=== PATIENT | female | born 1940 | race Caucasian/White ===

== ENCOUNTER 2017-06-30 17:45 | Emergency (ER) | payer MEDICARE ==
--- NOTE | 2017-06-30 21:12 | EDM.PDOC ---
ED HPI GENERAL MEDICAL PROBLEM - General Chief Complaint: General Stated Complaint: DIZZY,HEADACHE,NUMBNESS,NAUSEA Time Seen by Provider: 06/30/17 19:06 Source of Information: Reports: Patient, Family (), Old Records, RN Notes Reviewed History Limitations: Reports: No Limitations - History of Present Illness INITIAL COMMENTS - FREE TEXT/NARRATIVE: Brought in by her daughter and son-in-law Chief complaint Off-balance nausea and face numbness History of present illness 77-year-old female who is generally healthy apart from treatment for depression , on no other medications. Went over to her daughter's place at 3 PM today, started feeling that she was going to get "dizzy". So she went home where she became much worse. It was very difficult to get her to explain what she meant by dizzy, it seems that means off balance when walking but she also had nausea feeling unwell feeling that she was out of sorts. It was associated with a slight headache. Not a spinning sensation not like she was going to faint. She laid down for a while and then her grandson called because she was about to have dinner. She canceled dinner because of how she felt and then he called the daughter who went and checked on her brought her here. No nausea or vomiting or diarrhea no urinary symptoms. She feels tired but has had no cough or cold symptoms recently. She feels that there is some decreased vision in both of her eyes and she has some burning and numbness in her left cheek. No problems moving her arms or legs. She didn't need any assistance walking home or walking in. She has had some loose stools today but this is usual for her because of diverticulosis, she states she usually has at least 1 and often 2 stools per day. She's had cataract eye surgery but no surgery on the eye muscles. Her headache is quite mild and she wouldn't take any medication for it. 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 Strong family history of TIAs in her father denies Pain Score (Numeric/FACES): 0 - Related Data Allergies Allergy/AdvReac Type Severity Reaction Status Date / Time No Known Allergies Allergy Verified 06/30/17 18:20 Home Meds: Home Meds Esomeprazole Magnesium [Nexium 24Hr] 20 mg PO DAILY 06/30/17 [History] Sertraline [Zoloft] 100 mg PO DAILY 06/30/17 [History] traZODone HCl [Trazodone HCl] 50 mg PO DAILY 06/30/17 [History] Past Medical History Gastrointestinal History: Reports: Other (See Below) Other Gastrointestinal History: Montoya's esophagus, diverticulitis Psychiatric History: Reports: Depression Oncologic (Cancer) History: Reports: Breast - Past Surgical History HEENT Surgical History: Reports: Other (See Below) (She's had cataract surgery She has had a eye surgery despite easel tropia, her inspector automatic typewriter told her that she has good vision in both of her eyes, does not have lazy eye.) GI Surgical History: Reports: Appendectomy, Other (See Below) Other GI Surgeries/Procedures: Matti x 4. colectomy Female Surgical History: Reports: Hysterectomy Musculoskeletal Surgical History: Reports: Other (See Below) Other Musculoskeletal Surgeries/Procedures:: right knee meniscus procedure, bunionectomy Oncologic Surgical History: Reports: Mastectomy Social & Family History - Tobacco Use Smoking Status *Q: Current Every Day Smoker Years of Tobacco use: 20 Packs/Tins Daily: 0.3 - Recreational Drug Use Recreational Drug Use: No ED ROS GENERAL - Review of Systems Review Of Systems: See Below Constitutional: Reports: Malaise, Decreased Appetite. Denies: Fever, Chills, Diaphoresis HEENT: Reports: Vision Change (Slight blurriness in both eyes). Denies: Dental Pain, Rhinitis, Throat Pain Respiratory: Reports: No Symptoms. Denies: Shortness of Breath, Cough Cardiovascular: Reports: No Symptoms. Denies: Chest Pain, Dyspnea on Exertion, Lightheadedness, Palpitations, Syncope GI/Abdominal: Reports: Decreased Appetite, Other (Usual loose stools). Denies: Abdominal Pain, Nausea, Vomiting : Reports: No Symptoms Musculoskeletal: Reports: No Symptoms Skin: Reports: No Symptoms Neurological: Reports: Paresthesia (Numbness and burning left cheek), Other ( Although she felt off balance, she was able to walk without difficulty). Denies : Trouble Speaking, Difficulty Walking, Gait Disturbance Psychiatric: Reports: No Symptoms Hematologic/Lymphatic: Reports: No Symptoms Immunologic: Reports: No Symptoms ED EXAM, GENERAL - Physical Exam Exam: See Below Exam Limited By: No Limitations General Appearance: Alert, No Apparent Distress, Other (Pleasant smiling alert talkative, Blood pressure is elevated which is unusual for her, other vital signs normal) Eye Exam: Bilateral Eye: Other (Normal conjunctiva and eye movements, Esotropia present) Ears: Normal External Exam, Normal Canal, Normal TMs Nose: Normal Inspection, Normal Mucosa Throat/Mouth: Normal Inspection, Normal Oropharynx, Normal Voice Head: Atraumatic, Normocephalic Neck: Normal Inspection, Supple. No: Lymphadenopathy (R), Lymphadenopathy (L) Respiratory/Chest: No Respiratory Distress, Lungs Clear Cardiovascular: Normal Peripheral Pulses, Regular Rate, Rhythm GI/Abdominal: Normal Bowel Sounds, Soft, Non-Tender, No Distention Back Exam: Normal Inspection Extremities: Normal Inspection, Normal Range of Motion, Non-Tender, No Pedal Edema Neurological: Alert, Oriented, Normal Cognition, Normal Gait, No Motor/Sensory Deficits, Other (No facial droop, tongue retrusion midline, pronator drift negative, Romberg weakly positive, unable to do tandem gait, normal finger-nose- finger, Slight tremor, rapid alternating movements normal once she understood how to do them, follows directions without difficulty) Psychiatric: Normal Affect, Normal Mood Skin Exam: Warm, Dry, Intact, Normal Color, No Rash Lymphatic: No Adenopathy Course - Vital Signs Last Recorded V/S: Last Vital Signs Temp 35.8 C 06/30/17 18:21 Pulse 76 06/30/17 21:15 Resp 15 06/30/17 21:15 BP 167/80 H 06/30/17 21:15 Pulse Ox 97 06/30/17 21:15 - Orders/Labs/Meds Orders: Active Orders 24 hr Category Date Time Status EKG Documentation Completion [RC] ASDIRECTED Care 06/30/17 19:28 Active Head wo Cont [CT] Stat Exams 06/30/17 19:27 Taken EKG 12 Lead [EK] Routine Ther 06/30/17 19:27 Ordered Labs: Laboratory Tests 06/30/17 06/30/17 06/30/17 Range/Units 19:27 19:27 20:56 WBC 6.8 (4.5-11.0) K/uL RBC 4.61 (3.30-5.50) M/uL Hgb 13.5 (12.0-15.0) g/dL Hct 39.9 (36.0-48.0) % MCV 87 (80-98) fL MCH 29 (27-31) pg MCHC 34 (32-36) % Plt Count 267 (150-400) K/uL Sodium 140 (140-148) mmol/L Potassium 3.7 (3.6-5.2) mmol/L Chloride 104 (100-108) mmol/L Carbon Dioxide 28 (21-32) mmol/L Anion Gap 8.5 (5.0-14.0) mmol/L BUN 12 (7-18) mg/dL Creatinine 0.6 (0.6-1.0) mg/dL Est Cr Clr Drug Dosing 58.31 mL/min Estimated GFR (MDRD) > 60 (>60) Glucose 102 (74-106) mg/dL Calcium 9.0 (8.5-10.1) mg/dL Total Bilirubin 0.4 (0.2-1.0) mg/dL AST 17 (15-37) U/L ALT 24 (12-78) U/L Alkaline Phosphatase 88 (46-116) U/L Troponin I < 0.017 (0.000-0.056) ng/mL Total Protein 6.4 (6.4-8.2) g/dL Albumin 3.5 (3.4-5.0) g/dL Globulin 2.9 (2.3-3.5) g/dL Albumin/Globulin Ratio 1.2 (1.2-2.2) Urine Color Yellow Urine Appearance Clear Urine pH 7.0 (4.5-8.0) Ur Specific [place] 1.010 (1.008-1.030) Urine Protein Negative (NEGATIVE) mg/dL Urine Glucose (UA) Normal (NEGATIVE) mg/dL Urine Ketones Negative (NEGATIVE) mg/dL Urine Occult Blood Negative (NEGATIVE) Urine Nitrite Negative (NEGATIVE) Urine Bilirubin Negative (NEGATIVE) Urine Urobilinogen Normal (NORMAL) mg/dL Ur Leukocyte Esterase Moderate (NEGATIVE) Urine RBC 0-5 (0-5) Urine WBC 0-5 (0-5) Ur Epithelial Cells Few Amorphous Sediment Not seen Urine Bacteria Rare Urine Mucus Few - Re-Assessments/Exams Free Text/Narrative Re-Assessment/Exam: 06/30/17 21:05 77-year-old female with new onset of disequilibrium and left cheek numbness/ burning Neurological exam is reassuring except that she is unstable with hand indicate and slightly with Romberg. However normal gait seems quite stable and there is no focal deficit motor salomon. She reports blurriness of vision in both eyes, no loss of vision Differential diagnosis TIA, CVA, inner ear problem, paresthesia Symptoms are quite mild right now CBC complete metabolic profile and troponin normal EKG showed left ventricular hypertrophy Elevated blood pressure here in emergency normally she has normal blood pressure CT head shows an area of hypodense right temporal area, possibly related to ischemia Discharge home Outpatient MRI Get rechecked promptly if there is motor weakness or falling or severe headache Note to miss work tomorrow Follow-up with primary provider to recheck after MRI and to recheck blood pressure Visual disturbance persists, ophthalmology appointment 07/01/17 00:33 Departure - Departure Time of Disposition: 21:08 Disposition: Home, Self-Care 01 Condition: Undetermined Clinical Impression: Disequilibrium, Left facial numbness, Visual disturbance, Elevated blood pressure reading, Abnormal CT scan, head - Discharge Information Instructions: Paresthesia, Preventing Hypertension, Dizziness, Visual Disturbances Referrals: David Combs MD [Primary Care Provider] - Forms: ED Department Discharge Additional Instructions: Tonight you have some balance problems, this is called disequilibrium. This can be from an inner ear problem or related to revision changes. It does not appear to be a stroke but a small stroke or a TIA is possible. There is a slight irregularity on the right side of your CT scan; for this reason and your current balance troubles, an MRI is ordered Tonight her blood pressure was elevated a bit Tonight he also reports some vision changes and some numbness of your left cheek Make an appointment with your primary provider after the MRI to have your blood pressure rechecked to get the results of the MRI and to check your vision and balance. If your vision all problems persist you may need to see an inspector eyeglass Depending on the results of your MRI you may need further evaluation as well. If you develop sudden loss of use of arm or leg, slurred speech, severe headache , or high fever, get rechecked promptly Rest at home tomorrow Start taking aspirin 325 mg once daily or four 80 mg tablets once daily - My Orders Last 24 Hours: My Active Orders 06/30/17 19:27 Head wo Cont [CT] Stat EKG 12 Lead [EK] Routine 06/30/17 19:28 EKG Documentation Completion [RC] ASDIRECTED - Assessment/Plan Last 24 Hours: My Active Orders 06/30/17 19:27 Head wo Cont [CT] Stat EKG 12 Lead [EK] Routine 06/30/17 19:28 EKG Documentation Completion [RC] ASDIRECTED
== END 2017-06-30 21:35 | disposition home or self-care (01) ==
LOC: JP.ED 17:45
DX: E87.8 Other disorders of electrolyte and fluid balance, not elsewhere classified (principal); H53.9 Unspecified visual disturbance; R93.0 Abnormal findings on diagnostic imaging of skull and head, not elsewhere classified; R03.0 Elevated blood-pressure reading, without diagnosis of hypertension; R20.0 Anesthesia of skin; F17.210 Nicotine dependence, cigarettes, uncomplicated; Z79.899 Other long term (current) drug therapy
CPT/HCPCS: 36415; 70450; 80053; 81001; 84484; 85027; 93005; 99284; 99285-25

== ENCOUNTER 2020-02-24 14:30 | Inpatient (IN) | payer MEDICARE ==
[2020-02-24] MEDS ORDERED: fentaNYL 100 MCG/2 ML SDV IVPUSH ONE ×2 (14:57→15:49)
--- NOTE | 2020-02-24 15:12 | EDM.PDOC ---
ED HPI GENERAL MEDICAL PROBLEM - General Chief Complaint: Trauma Stated Complaint: FELL OFF THE LADDER Time Seen by Provider: 02/24/20 14:45 Source of Information: Reports: Patient History Limitations: Reports: No Limitations - History of Present Illness INITIAL COMMENTS - FREE TEXT/NARRATIVE: 79-year-old female that fell 3 or 4 rungs of the ladder off onto her backside at home. Her family to help her into the car and into the emergency room because of significant lumbar spine pain. She has a history of compression fractures in the past. No other symptoms, she did not hit her head, shoulders or extremities. Her pain is focused only in the low back, no abdominal pain or pelvis pain. A trauma code was initially called because of the fall. Onset: Sudden Duration: Hour(s): (Within the last hour at home here in town) Location: Reports: Back (Low back pain only) Associated Symptoms: Reports: No Other Symptoms - Related Data Allergies Allergy/AdvReac Type Severity Reaction Status Date / Time No Known Allergies Allergy Verified 06/30/17 18:20 Home Meds: Home Meds NK [No Known Home Meds] 02/24/20 [History] Past Medical History Gastrointestinal History: Reports: Other (See Below) Other Gastrointestinal History: Montoya's esophagus, diverticulitis Psychiatric History: Reports: Depression Oncologic (Cancer) History: Reports: Breast - Past Surgical History HEENT Surgical History: Reports: Other (See Below) (She's had cataract surgery She has had a eye surgery despite easel tropia, her blackener told her that she has good vision in both of her eyes, does not have lazy eye.) GI Surgical History: Reports: Appendectomy, Other (See Below) Other GI Surgeries/Procedures: Matti x 4. colectomy Female Surgical History: Reports: Hysterectomy Musculoskeletal Surgical History: Reports: Other (See Below) Other Musculoskeletal Surgeries/Procedures:: right knee meniscus procedure, bunionectomy Oncologic Surgical History: Reports: Mastectomy Review of Systems - Review of Systems Review Of Systems: See Below Constitutional: Denies: Fever Respiratory: Reports: No Symptoms Cardiovascular: Reports: No Symptoms GI/Abdominal: Denies: Abdominal Pain Musculoskeletal: Reports: Back Pain Skin: Denies: Bruising ED EXAM, GENERAL - Physical Exam Exam: See Below Exam Limited By: No Limitations General Appearance: Alert, No Apparent Distress, Other (Fairly comfortable when sitting still, intense pain with any movement localized in her lower back) Eye Exam: Bilateral Eye: Other (Chronic disconjugate gaze) Head: Atraumatic Neck: Supple, Non-Tender Respiratory/Chest: Lungs Clear Cardiovascular: Regular Rate, Rhythm Back Exam: Vertebral Tenderness (Significant vertebral tenderness to palpation over the mid lumbar spine) Extremities: Other (Flexion of the lower extremities at the hip and internal and external rotation causes increased pain in her back, not in the hip or pelvis) Psychiatric: Normal Affect, Normal Mood Skin Exam: Warm, Dry Course - Vital Signs Last Recorded V/S: Last Vital Signs Temp 97.9 F 02/24/20 17:55 Pulse 82 02/24/20 17:55 Resp 16 02/24/20 17:55 BP 159/87 H 02/24/20 17:55 Pulse Ox 96 02/24/20 17:55 - Orders/Labs/Meds Orders: Active Orders 24 hr Category Date Time Status Patient Status [ADT] Routine ADT 02/24/20 17:08 Active Antiembolic Devices [RC] .Routine Care 02/24/20 17:07 Active Oxygen Therapy [RC] PRN Care 02/24/20 17:08 Active VTE/DVT Education [RC] Per Unit Routine Care 02/24/20 17:08 Active Vital Signs [RC] Q4H Care 02/24/20 17:08 Active OT Evaluation and Treatment [CONS] Routine Cons 02/24/20 17:07 Active PT Evaluation and Treatment [CONS] Routine Cons 02/24/20 17:07 Active Regular Diet [DIET] Diet 02/24/20 Dinner Active Acetaminophen [TylenoL] Med 02/24/20 17:07 Active 650 mg PO Q4H PRN Docusate Sodium [Colace] Med 02/24/20 17:07 Active 100 mg PO BID PRN Ondansetron [Zofran ODT] Med 02/24/20 17:07 Active 4 mg PO Q6H PRN oxyCODONE Med 02/24/20 17:07 Active 2.5 mg PO Q4H PRN Sequential Compression Device [OM.PC] Per Unit Routine Oth 02/24/20 17:09 Ordered Resuscitation Status Routine Resus Stat 02/24/20 17:07 Ordered Medication Orders Acetaminophen (Tylenol) 650 mg PO Q4H PRN PRN Reason: Pain (Mild 1-3)/fever Docusate Sodium (Colace) 100 mg PO BID PRN PRN Reason: Constipation Lidocaine (Lidoderm 5%) 700 mg TOP DAILY PRN PRN Reason: Pain (moderate 4-6) Ondansetron HCl (Zofran Odt) 4 mg PO Q6H PRN PRN Reason: Nausea able to take PO Oxycodone HCl (Oxycodone) 2.5 mg PO Q4H PRN PRN Reason: Pain (moderate 4-6) Labs: Laboratory Tests 02/24/20 02/24/20 Range/Units 15:00 15:00 WBC 8.4 (4.5-11.0) K/uL RBC 4.73 (3.30-5.50) M/uL Hgb 14.2 (12.0-15.0) g/dL Hct 42.0 (36.0-48.0) % MCV 89 (80-98) fL MCH 30 (27-31) pg MCHC 34 (32-36) % Plt Count 283 (150-400) K/uL Neut % (Auto) 68 H (36-66) % Lymph % (Auto) 26 (24-44) % [place] % (Auto) 4 (2-6) % Eos % (Auto) 1 L (2-4) % Baso % (Auto) 1 (0-1) % Sodium 139 L (140-148) mmol/L Potassium 3.7 (3.6-5.2) mmol/L Chloride 102 (100-108) mmol/L Carbon Dioxide 25 (21-32) mmol/L Anion Gap 15.7 H (5.0-14.0) mmol/L BUN 14 (7-18) mg/dL Creatinine 0.8 (0.6-1.0) mg/dL Est Cr Clr Drug Dosing 48.19 mL/min Estimated GFR (MDRD) > 60 (>60) Glucose 144 H (74-106) mg/dL Calcium 9.1 (8.5-10.1) mg/dL Meds: Medications Generic Name Dose Route Start Last Admin Trade Name Freq PRN Reason Stop Dose Admin Acetaminophen 650 mg 02/24/20 17:07 Tylenol PO Q4H PRN Pain (Mild 1-3)/fever Docusate Sodium 100 mg 10/15/20 17:07 Colace PO BID PRN Constipation Lidocaine 700 mg 02/24/20 17:11 Lidoderm 5% TOP DAILY PRN Pain (moderate 4-6) Ondansetron HCl 4 mg 02/24/20 17:07 Zofran Odt PO Q6H PRN Nausea able to take PO Oxycodone HCl 2.5 mg 02/24/20 17:07 Oxycodone PO Q4H PRN Pain (moderate 4-6) Discontinued Medications Generic Name Dose Route Start Last Admin Trade Name Freq PRN Reason Stop Dose Admin Fentanyl 50 mcg 02/24/20 14:57 02/24/20 15:04 Sublimaze IVPUSH 02/24/20 14:58 50 mcg ONETIME ONE Administration Fentanyl 50 mcg 02/24/20 15:49 02/24/20 15:52 Sublimaze IVPUSH 02/24/20 15:50 50 mcg ONETIME ONE Administration - Re-Assessments/Exams Free Text/Narrative Re-Assessment/Exam: 02/24/20 17:11 IV was started and the patient was given 50 mcg of fentanyl IV. She was then sent back for a CT of the lumbar spine which showed a acute compression fracture of L2. She wanted to try to go home but was unable to stand without significant discomfort so was laid back down and given an additional 50 mcg of fentanyl IV. Consultations were made with the hospitalist service here in [place], and neurosurgery in [place] and the recommendation was for her to be admitted here for pain control and then evaluated for possible bracing in the next 48 to 72 hours if she did not respond to pain control. 02/24/20 18:11 CBC and BMP returned reassuring prior to admission. Departure - Departure Time of Disposition: 16:20 Disposition: Admitted As Inpatient 65 Clinical Impression: Compression fx, lumbar spine Qualifiers: Encounter type: initial encounter Lumbar vertebra fracture level: L2 Qualified Code(s): S32.020A - Wedge compression fracture of second lumbar vertebra, initial encounter for closed fracture - Discharge Information
--- NOTE | 2020-02-24 16:41 | CRLCT ---
INDICATION: Fall. Back pain TECHNIQUE: CT lumbar spine without contrast. COMPARISON: None available FINDINGS: Osteopenia is noted. The lumbar spine alignment is within normal limits. The facets are anatomically aligned. There is an acute fracture of the L2 vertebral body, with buckling of the mid vertebral body anterior and anterolateral cortex, mild focal impaction underlying the superior endplate in the right anterolateral aspect, and a small regional lucency extending to the right anterolateral corner of the superior endplate. There is very mild associated compression deformity and tiny posterior cortical retropulsion. There is mild degenerative facet disease in the lower lumbar spine and small disc bulges at several levels. There is a small nonobstructive left renal lower pole calcification. Atherosclerotic changes are seen. IMPRESSION: An acute L2 fracture with mild compression. Dictated by Tyler Samuels MD @ 02/24/2020 4:40:20 PM Please note that all CT scans at this facility use dose modulation, iterative reconstruction, and/or weight-based dosing when appropriate to reduce radiation dose to as low as reasonably achievable. Dictated by: Tyler Samuels MD @ 02/24/2020 16:40:38 (Electronically Signed)
[2020-02-24] MEDS ORDERED: Docusate Sodium 100 MG Cap PO PRN (17:07)
[2020-02-24] MEDS ORDERED: Lidocaine 5% 700 MG Patch TOP PRN (17:11)
--- NOTE | 2020-02-24 17:39 | PCM.HP.2 ---
H&P History of Present Illness - General Date of Service: 02/24/20 Admit Problem/Dx: Admission Diagnosis/Problem Admission Diagnosis/Problem Compression fracture of lumbar vertebra Source of Information: Patient, Family History Limitations: Reports: No Limitations - History of Present Illness Initial Comments - Free Text/Narative: Ms. Joy Garcia is an 79 yo F admitted to [facility] on 24 February [facility] after sustaining a fall from a ladder at a height of 3-4 ft. The patient was noted to have severe back pain without focal neurological deficit in the BLE. The patient was noted to have had a L2 compression fracture. The patient was given fentanyl x 2 in the ED and attempted to be ambulated. Upon attempting this the patient had significant pain and was unable to support herself on the walker. Consequently admission was requested. The case was dis cussed by the ED with the attending Neurosurgeon alternative education teacher in [place] who recommended observation w/o need for TLSO bracing at this time. The patient will be admitted to observation status at this time. The patient notes some URI sxs over the past 3 wks that seem to be waning at this time. Onset of Symptoms: Reports: Today Duration of Symptoms: Reports: Hour(s): Location: Reports: Back Quality: Reports: Ache, Stabbing Severity: Severe Improves with: Reports: Medication Worsens with: Reports: Movement Associated Symptoms: Reports: No Other Symptoms - Related Data Allergies/Adverse Reactions: Allergies Allergy/AdvReac Type Severity Reaction Status Date / Time No Known Allergies Allergy Verified 06/30/17 18:20 Home Medications: Home Meds NK [No Known Home Meds] 02/24/20 [History] Past Medical History Gastrointestinal History: Reports: Other (See Below) Other Gastrointestinal History: Montoya's esophagus, diverticulitis Psychiatric History: Reports: Depression Oncologic (Cancer) History: Reports: Breast - Past Surgical History HEENT Surgical History: Reports: Other (See Below) (She's had cataract surgery She has had a eye surgery despite easel tropia, her medicare nurse told her that she has good vision in both of her eyes, does not have lazy eye.) GI Surgical History: Reports: Appendectomy, Other (See Below) Other GI Surgeries/Procedures: Matti x 4. colectomy Female Surgical History: Reports: Hysterectomy Musculoskeletal Surgical History: Reports: Other (See Below) Other Musculoskeletal Surgeries/Procedures:: right knee meniscus procedure, bunionectomy Oncologic Surgical History: Reports: Mastectomy H&P Review of Systems - Review of Systems: Review Of Systems: Comprehensive ROS is negative, except as noted in HPI. Exam - Exam Exam: See Below - Vital Signs Weight: 120 lb - Exam Quality Assessment: DVT Prophylaxis. No: Supplemental Oxygen General: Alert, Oriented, Cooperative, Moderate Distress HEENT: PERRLA, Conjunctiva Clear, Mucosa Moist & [place], Posterior Pharynx Clear, Pupils Equal, Pupils Reactive Lungs: Clear to Auscultation, Normal Respiratory Effort Cardiovascular: Regular Rate, Regular Rhythm, Normal S1, Normal S2 GI/Abdominal Exam: Normal Bowel Sounds, Soft, Non-Tender, No Organomegaly, No Distention, No Mass Back Exam: Normal Inspection, Full Range of Motion Extremities: Normal Inspection, Normal Range of Motion, Non-Tender, No Pedal Edema, Normal Capillary Refill Peripheral Pulses: 4+: Posterior Tibial (L), Posterior Tibial (R), Dorsalis Pedis (L), Dorsalis Pedis (R) Skin: Warm, Dry, Intact Neurological: Cranial Nerves Intact, Reflexes Equal Bilateral Neuro Extensive - Mental Status: Alert, Oriented x3, Normal Mood/Affect, Normal Cognition, Memory Intact Neuro Extensive - Motor, Sensory, Reflexes: CN II-XII Intact, Normal Reflexes DTR: 2+: Patella (L), Patella (R) Psychiatric: Alert, Normal Affect, Normal Mood - Patient Data Lab Results Last 24 hrs: Laboratory Results - last 24 hr 02/24/20 02/24/20 Range/Units 15:00 15:00 WBC 8.4 (4.5-11.0) K/uL RBC 4.73 (3.30-5.50) M/uL Hgb 14.2 (12.0-15.0) g/dL Hct 42.0 (36.0-48.0) % MCV 89 (80-98) fL MCH 30 (27-31) pg MCHC 34 (32-36) % Plt Count 283 (150-400) K/uL Neut % (Auto) 68 H (36-66) % Lymph % (Auto) 26 (24-44) % Drew % (Auto) 4 (2-6) % Eos % (Auto) 1 L (2-4) % Baso % (Auto) 1 (0-1) % Sodium 139 L (140-148) mmol/L Potassium 3.7 (3.6-5.2) mmol/L Chloride 102 (100-108) mmol/L Carbon Dioxide 25 (21-32) mmol/L Anion Gap 15.7 H (5.0-14.0) mmol/L BUN 14 (7-18) mg/dL Creatinine 0.8 (0.6-1.0) mg/dL Est Cr Clr Drug Dosing 48.19 mL/min Estimated GFR (MDRD) > 60 (>60) Glucose 144 H (74-106) mg/dL Calcium 9.1 (8.5-10.1) mg/dL Result Diagrams: 02/24/20 15:00 02/24/20 15:00 Problem List Initiated/Reviewed/Updated: Yes Orders Last 24hrs: Active Orders 24 hr Category Date Time Status Patient Status [ADT] Routine ADT 02/24/20 17:08 Ordered Antiembolic Devices [RC] .Routine Care 02/24/20 17:07 Ordered Oxygen Therapy [RC] PRN Care 02/24/20 17:08 Ordered VTE/DVT Education [RC] Per Unit Routine Care 02/24/20 17:08 Ordered Vital Signs [RC] Q4H Care 02/24/20 17:08 Ordered OT Evaluation and Treatment [CONS] Routine Cons 02/24/20 17:07 Ordered PT Evaluation and Treatment [CONS] Routine Cons 02/24/20 17:07 Ordered Regular Diet [DIET] Diet 02/24/20 Dinner Ordered Acetaminophen [TylenoL] Med 02/24/20 17:07 Ordered 650 mg PO Q4H PRN Docusate Sodium [Colace] Med 02/24/20 17:07 Ordered 100 mg PO BID PRN Lidocaine 5% [Lidoderm 5%] Med 02/24/20 17:11 Ordered 700 mg TOP DAILY PRN Ondansetron [Zofran ODT] Med 02/24/20 17:07 Ordered 4 mg PO Q6H PRN oxyCODONE Med 02/24/20 17:07 Ordered 2.5 mg PO Q4H PRN Sequential Compression Device [OM.PC] Per Unit Routine Oth 02/24/20 17:09 Ordered Resuscitation Status Routine Resus Stat 02/24/20 17:07 Ordered Medication Orders Acetaminophen (Tylenol) 650 mg PO Q4H PRN PRN Reason: Pain (Mild 1-3)/fever Docusate Sodium (Colace) 100 mg PO BID PRN PRN Reason: Constipation Lidocaine (Lidoderm 5%) 700 mg TOP DAILY PRN PRN Reason: Pain (moderate 4-6) Ondansetron HCl (Zofran Odt) 4 mg PO Q6H PRN PRN Reason: Nausea able to take PO Oxycodone HCl (Oxycodone) 2.5 mg PO Q4H PRN PRN Reason: Pain (moderate 4-6) Assessment/Plan Comment:: ASSESSMENT AND PLAN: 1. HEENT Mild URI symptoms on the way out. - May consider COVID 19 test 2. Cardiopulmonary No issues, no known [employer] meds 3. Renal Stable 4. F/E/N General diet, po hydration 5. Gastrointestinal Some radiating pain from the spine to the anterior lower quadrants Starting po pain meds - Bowel regimen Rx 6. ID No issues except as above 7. Neuromusculoskeletal Patient has L2 compression fx. I am worried that her severe pain may not be resolvable with po and topical pain meds only and that she may well need TLSO bracing. if this is the case she would require transportation to [place] or [place] for further management - APAP - Oxycodone 2.5 mg po q 4 hours prn pain - Lidoderm patch 5% to L2 spine - PT/OT to see - May need bracing if pain not improving in 1-2 days Disposition:Pending Hermann Weiss M.D. 24 February 2020 - Mortality Measure Prognosis:: Good
[2020-02-24] MEDS: oxyCODONE 5 MG Tab PO PRN ×2 (18:28→23:05)
[2020-02-24] MEDS: HYDROmorphone 0.5 MG/0.5 ML Syringe IVPUSH PRN (20:06)
[2020-02-25] MEDS: HYDROmorphone 0.5 MG/0.5 ML Syringe IVPUSH PRN ×6 (00:37→22:27)
[2020-02-25] MEDS: oxyCODONE 5 MG Tab PO PRN ×4 (03:16→19:54)
[2020-02-25] MEDS: Acetaminophen 325 MG Tab PO PRN ×2 (07:45→12:10)
[2020-02-25] MEDS: Ondansetron 4 MG Tab.DIS PO PRN ×3 (07:45→19:53)
--- NOTE | 2020-02-25 10:32 | PCM.PN ---
- General Info Date of Service: 02/25/20 Admission Dx/Problem (Free Text): Admitted to [facility] on 23 February after fall from 3-4 foot height from ladder. Patient noted to have L2 compression fx. Pain has been very difficult to control overnight requiring multiple IV doses of dilaudid in addition to po options with some effect. patient still non-ambulatory at this time. Family is requesting that the patient should be set up for TLSO bracing. Functional Status: Reports: Tolerating Diet. Denies: Pain Controlled, Ambulating - Review of Systems General: Reports: No Symptoms HEENT: Reports: No Symptoms Pulmonary: Reports: No Symptoms Cardiovascular: Reports: No Symptoms Gastrointestinal: Reports: No Symptoms Musculoskeletal: Reports: Back Pain - Patient Data Vitals - Most Recent: Last Vital Signs Temp 96.7 F L 02/25/20 07:36 Pulse 82 02/25/20 07:36 Resp 16 02/25/20 07:36 BP 160/62 H 02/25/20 07:36 Pulse Ox 94 L 02/25/20 07:36 Weight - Most Recent: 120 lb I&O - Last 24 Hours: Intake & Output 02/24/20 02/25/20 02/25/20 22:59 06:59 14:59 Intake Total 420 300 Balance 420 300 Lab Results Last 24 Hours: Laboratory Results - last 24 hr 02/24/20 02/24/20 Range/Units 15:00 15:00 WBC 8.4 (4.5-11.0) K/uL RBC 4.73 (3.30-5.50) M/uL Hgb 14.2 (12.0-15.0) g/dL Hct 42.0 (36.0-48.0) % MCV 89 (80-98) fL MCH 30 (27-31) pg MCHC 34 (32-36) % Plt Count 283 (150-400) K/uL Neut % (Auto) 68 H (36-66) % Lymph % (Auto) 26 (24-44) % [place] % (Auto) 4 (2-6) % Eos % (Auto) 1 L (2-4) % Baso % (Auto) 1 (0-1) % Sodium 139 L (140-148) mmol/L Potassium 3.7 (3.6-5.2) mmol/L Chloride 102 (100-108) mmol/L Carbon Dioxide 25 (21-32) mmol/L Anion Gap 15.7 H (5.0-14.0) mmol/L BUN 14 (7-18) mg/dL Creatinine 0.8 (0.6-1.0) mg/dL Est Cr Clr Drug Dosing 48.19 mL/min Estimated GFR (MDRD) > 60 (>60) Glucose 144 H (74-106) mg/dL Calcium 9.1 (8.5-10.1) mg/dL Med Orders - Current: Current Medications Acetaminophen (Tylenol) 650 mg PO Q4H PRN PRN Reason: Pain (Mild 1-3)/fever Last Admin: 02/25/20 07:45 Dose: 650 mg Documented by: Docusate Sodium (Colace) 100 mg PO BID PRN PRN Reason: Constipation Hydromorphone HCl (Dilaudid) 0.5 mg IVPUSH Q4H PRN PRN Reason: Pain Last Admin: 02/25/20 09:04 Dose: 0.5 mg Documented by: Lidocaine (Lidoderm 5%) 700 mg TOP DAILY PRN PRN Reason: Pain (moderate 4-6) Last Admin: 02/24/20 18:29 Dose: 700 mg Documented by: Nicotine (Habitrol) 7 mg TRDERM DAILY JESSICA Ondansetron HCl (Zofran Odt) 4 mg PO Q6H PRN PRN Reason: Nausea able to take PO Last Admin: 02/25/20 07:45 Dose: 4 mg Documented by: Oxycodone HCl (Oxycodone) 2.5 mg PO Q4H PRN PRN Reason: Pain (moderate 4-6) Last Admin: 02/25/20 07:45 Dose: 2.5 mg Documented by: Discontinued Medications Fentanyl (Sublimaze) 50 mcg IVPUSH ONETIME ONE Stop: 02/24/20 14:58 Last Admin: 02/24/20 15:04 Dose: 50 mcg Documented by: Fentanyl (Sublimaze) 50 mcg IVPUSH ONETIME ONE Stop: 02/24/20 15:50 Last Admin: 02/24/20 15:52 Dose: 50 mcg Documented by: - Exam Quality Assessment: DVT Prophylaxis. No: Supplemental Oxygen General: Alert, Oriented, Cooperative, Moderate Distress Lungs: Clear to Auscultation, Normal Respiratory Effort Cardiovascular: Regular Rate, Regular Rhythm, No Murmurs GI/Abdominal Exam: Normal Bowel Sounds, Soft Sepsis Event Note - Evaluation Sepsis Screening Result: No Definite Risk - Focused Exam Vital Signs: Vital Signs Temp Pulse Resp BP Pulse Ox 02/25/20 07:36 96.7 F L 82 16 160/62 H 94 L 02/25/20 04:00 97.0 F 77 16 157/57 H 95 02/24/20 23:15 97.0 F 69 16 159/72 H 95 - Problem List Review Problem List Initiated/Reviewed/Updated: Yes - My Orders Last 24 Hours: My Active Orders 02/24/20 Dinner Regular Diet [DIET] 02/24/20 17:07 Antiembolic Devices [RC] .Routine OT Evaluation and Treatment [CONS] Routine PT Evaluation and Treatment [CONS] Routine Acetaminophen [TylenoL] 650 mg PO Q4H PRN Docusate Sodium [Colace] 100 mg PO BID PRN Ondansetron [Zofran ODT] 4 mg PO Q6H PRN oxyCODONE 2.5 mg PO Q4H PRN Resuscitation Status Routine 02/24/20 17:08 Oxygen Therapy [RC] PRN VTE/DVT Education [RC] Per Unit Routine Vital Signs [RC] Q4H 02/24/20 17:09 Sequential Compression Device [OM.PC] Per Unit Routine 02/24/20 17:11 Lidocaine 5% [Lidoderm 5%] 700 mg TOP DAILY PRN 02/24/20 19:45 HYDROmorphone [Dilaudid] 0.5 mg IVPUSH Q4H PRN 02/25/20 09:46 Admission Status [Patient Status] [ADT] Routine 02/25/20 10:00 Nicotine [Habitrol] 7 mg TRDERM DAILY - Plan Plan:: ASSESSMENT AND PLAN: 1. HEENT Mild URI symptoms on the way out. - May consider COVID 19 test 2. 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 Renal Stable 4. F/E/N General diet, po hydration 5. Gastrointestinal Some radiating pain from the spine to the anterior lower quadrants Starting po pain meds - Bowel regimen Rx 6. ID No issues except as above 7. Neuromusculoskeletal Patient has L2 compression fx. I am worried that her severe pain may not be resolvable with po and topical pain meds only and that she may well need TLSO bracing. if this is the case she would require transportation to [place] or [place] for further management - added IV dilaudid overnight - APAP - Oxycodone 2.5 mg po q 4 hours prn pain - Lidoderm patch 5% to L2 spine - PT/OT to see - Will readdress bracing today with Neurosurgery in [place], [place] Disposition:Pending Hermann Weiss M.D. 25 February 2020
[2020-02-25] MEDS: Nicotine 7 MG/24 Hr Patch TRDERM SCH (11:58)
[2020-02-25] MEDS ORDERED: hydrOXYzine HCL 100 MG/2 ML SDV IM PRN (16:38)
[2020-02-25] MEDS: Ibuprofen 600 MG Tab PO SCH (18:10)
[2020-02-26] MEDS: HYDROmorphone 0.5 MG/0.5 ML Syringe IVPUSH PRN (02:02)
[2020-02-26] MEDS: oxyCODONE 5 MG Tab PO PRN ×2 (02:02→07:46)
[2020-02-26] MEDS: Acetaminophen 325 MG Tab PO PRN (07:45)
[2020-02-26] MEDS ORDERED: Docusate Sodium 100 MG Cap PO SCH (09:00)
[2020-02-26] MEDS: Nicotine 7 MG/24 Hr Patch TRDERM SCH (09:17)
[2020-02-26] MEDS: Ibuprofen 600 MG Tab PO SCH ×2 (09:17)
--- NOTE | 2020-02-26 10:55 | PCM.DCSUM1 ---
Discharge Summary - Hospital Course HPI Initial Comments: Ms. Joy Garcia was admitted to [facility] on 26 February 2020 for management of an L2 compression fracture sustained after a fall from a ladder. The patient was attempting to paint a wall in her den. She lost her footing and fell back on her buttocks. In the wake of the fall she has experienced/exhibited severe LBP and inability to ambulate. The patient was brought to the ED whereupon an L2 compression fx was identified. The patient was initially presented to [facility] for possible transfer and consideration of TLSO brace vs Kyphoplasty. At that time her case was not felt to be sufficiently acute enough to warrant this. Thus the patient was admitted for pain control, PT and mobilization. The patient was able to eventually achieve adequate pain control with use of a lidoderm patch, oxycodone, ibuprofen, and acetaminophen. The patient was able to do some ambulation w/o assistance in her room (unofficially) and felt that she could safely discharge. On 24 February the case was presented, again, to [facility] and Dr. Cooper from the Ortho/Spine section felt that the images, clinical presentation were of sufficient acuity to warrant kyphoplasty and this was recommended as an outpatient. The case management team is working on facilitating this for the patient early next week (week of the 27 of February) Diagnosis: Stroke: No Modified Vikash Scale: No Symptoms at All Modified Vikash Scale Score: 0 - Discharge Data Discharge Date: 02/26/20 Discharge Disposition: Home, Self-Care 01 Condition: Good - Referral to Home Health Primary Care Physician: Zahraa Holt MD - Patient Summary/Data Consults: Consultations 02/24/20 17:07 OT Evaluation and Treatment [CONS] Routine Please Evaluate and Treat. OT Reason for Consult: ADL's This query below is only for informational purposes and is not editable. PT Evaluation and Treatment [CONS] Routine Please Evaluate and Treat. PT Reason for Consult: Ambulation This query below is only for informational purposes and is not editable. - Patient Instructions Diet: Usual Diet as Tolerated Driving: Do Not Drive - Discharge Plan *PRESCRIPTION DRUG MONITORING PROGRAM REVIEWED*: No *COPY OF PRESCRIPTION DRUG MONITORING REPORT IN PATIENT LALA: No Prescriptions/Med Rec: Docusate Sodium [Colace] 100 mg PO BID #30 cap Lidocaine 5% [Lidoderm 5%] 700 mg TOP DAILY PRN #7 patch PRN Reason: Pain (Moderate 4-6) oxyCODONE 5 mg PO Q4H PRN 7 Days #30 tablet PRN Reason: Pain (Moderate 4-6) Ondansetron [Zofran ODT] 4 mg PO Q6H PRN #30 tab.dis PRN Reason: Nausea able to take PO Home Medications: Home Meds Esomeprazole Magnesium [Nexium] 40 mg PO QAM 02/25/20 [History] Sertraline [Zoloft] 100 mg PO DAILY 02/25/20 [History] traZODone 100 mg PO BEDTIME 02/25/20 [History] Acetaminophen [Tylenol] 650 mg PO Q4H PRN tablet 02/26/20 [Rx] Docusate Sodium [Colace] 100 mg PO BID #30 cap 02/26/20 [Rx] Ibuprofen [Motrin] 600 mg PO Q8H tablet 02/26/20 [Rx] Lidocaine 5% [Lidoderm 5%] 700 mg TOP DAILY PRN #7 patch 02/26/20 [Rx] Ondansetron [Zofran ODT] 4 mg PO Q6H PRN #30 tab.dis 02/26/20 [Rx] oxyCODONE 5 mg PO Q4H PRN 7 Days #30 tablet 02/26/20 [Rx] Forms: ED Department Discharge Referrals: Zahraa Holt MD [Primary Care Provider] - - Discharge Summary/Plan Comment DC Time >30 min.: Yes - Patient Data Vitals - Most Recent: Last Vital Signs Temp 97.3 F 02/26/20 07:00 Pulse 77 02/26/20 07:00 Resp 16 02/26/20 07:00 BP 150/62 H 02/26/20 07:00 Pulse Ox 94 L 02/26/20 07:00 Weight - Most Recent: 120 lb I&O - Last 24 hours: Intake & Output 02/25/20 02/26/20 02/26/20 22:59 06:59 14:59 Intake Total 700 Balance 700 Lab Results - Last 24 hrs: Laboratory Results - last 24 hr 02/25/20 02/25/20 Range/Units 17:39 18:11 POC Glucose 216 H (74-106) MG/DL Troponin I < 0.017 (0.000-0.056) ng/mL Med Orders - Current: Current Medications Acetaminophen (Tylenol) 650 mg PO Q4H PRN PRN Reason: Pain (Mild 1-3)/fever Last Admin: 02/26/20 07:45 Dose: 650 mg Documented by: Docusate Sodium (Colace) 100 mg PO BID [facility] Last Admin: 02/26/20 09:17 Dose: 100 mg Documented by: Hydromorphone HCl (Dilaudid) 0.5 mg IVPUSH Q4H PRN PRN Reason: Pain Last Admin: 02/26/20 02:02 Dose: 0.5 mg Documented by: Hydroxyzine HCl (Vistaril) 100 mg IM Q6H PRN PRN Reason: Itching Ibuprofen (Motrin) 600 mg PO Q8H [facility] Last Admin: 02/26/20 09:17 Dose: 600 mg Documented by: Lidocaine (Lidoderm 5%) 700 mg TOP DAILY PRN PRN Reason: Pain (moderate 4-6) Last Admin: 02/24/20 18:29 Dose: 700 mg Documented by: Nicotine (Habitrol) 7 mg TRDERM DAILY [facility] Last Admin: 02/26/20 09:17 Dose: 7 mg Documented by: Ondansetron HCl (Zofran Odt) 4 mg PO Q6H PRN PRN Reason: Nausea able to take PO Last Admin: 02/25/20 19:53 Dose: 4 mg Documented by: Oxycodone HCl (Oxycodone) 5 mg PO Q4H PRN PRN Reason: Pain (moderate 4-6) Last Admin: 02/26/20 07:46 Dose: 5 mg Documented by: Discontinued Medications Docusate Sodium (Colace) 100 mg PO BID PRN PRN Reason: Constipation Fentanyl (Sublimaze) 50 mcg IVPUSH ONETIME ONE Stop: 02/24/20 14:58 Last Admin: 02/24/20 15:04 Dose: 50 mcg Documented by: Fentanyl (Sublimaze) 50 mcg IVPUSH ONETIME ONE Stop: 02/24/20 15:50 Last Admin: 02/24/20 15:52 Dose: 50 mcg Documented by: Oxycodone HCl (Oxycodone) 2.5 mg PO Q4H PRN PRN Reason: Pain (moderate 4-6) Last Admin: 02/25/20 12:10 Dose: 2.5 mg Documented by: - Exam Quality Assessment: Denies: Supplemental Oxygen, DVT Prophylaxis General: Reports: Alert, Oriented, Cooperative, Mild Distress Lungs: Reports: Clear to Auscultation, Normal Respiratory Effort Cardiovascular: Reports: Regular Rate, Regular Rhythm, No Murmurs
== END 2020-02-26 15:58 | disposition home or self-care (01) | DRG 552 ==
LOC: JP.ED 14:30 → JP.MS 17:08 → OBSVTOIN 02-25 09:46
PROVIDERS: ADMIT Family Medicine; ATTEND Family Medicine
DX: S32.020A Wedge compression fracture of second lumbar vertebra, initial encounter for closed fracture (principal); K22.70 Barrett's esophagus without dysplasia; F32.9 Major depressive disorder, single episode, unspecified; Z85.3 Personal history of malignant neoplasm of breast; W11.XXXA Fall on and from ladder, initial encounter
CPT/HCPCS: 36415; 72131; 80048; 85025; 96374; 96376; 99285; A9270 ×7; J1170 ×4; J3010 ×2; 82962; 84484; 93005; 96375; 97116-GP; 97162-GP; 97530-GP; 97535-GP; G0378